=== PATIENT | female | born 1955 | race Caucasian/White ===

== ENCOUNTER → 2017-11-03 | Outpatient (CLI) | payer BC, OTHER ==
[~2017-11-03] VITALS: Ht 149.9 cm; Wt 78.0 kg
[~2017-11-03] MED LIST: ASPIR 8181 MG PO; FELDENE20 MG PO; LOSARTAN-HCTZ1 EAC1 PO; METFORMIN HCL500 MG PO; RESTASIS1 EACH OPHTHALMIC; SIMVASTATIN40 MG PO; SYNTHROID88 MCG PO; TOPROL XL100 MG PO; VENTOLIN HFA 1818 GM INH
--- NOTE | ~2017-11-03 | CATHLAB ---
[facility] [address] [place] [address] INVASIVE PROCEDURE REPORT Name: DARIUS PITT Room #: REG Talita#: [id number] Admission: 11/03/17 Attend Phys: Ren Matthews Discharge: Date of : 55 Date of Service: 11/22/17 1419 Report #: [id number] THIS REPORT FOR: //name// APPROVED REPORT Patient Details Patient Status: Out-Patient Room #: The patient is a 61 year-old female Event Personnel Ren Frost Scrub Tech, Gregor Coyne RN, Denisse Recinos Sandifer, David Monitor Procedures Performed Left Heart Cath w/or w/o Coronaries [id number] [facility] Indication Positive stress test, Chest pain Procedure Narrative The Right Groin^ was infiltrated with 1% Lidocaine subcutaneous anesthesia. A PINNACLE 4FR Sheath #[id number] sheath was inserted into the RFA^. Coronary angiography was performed using coronary diagnostic catheters. The right coronary system was accessed and visualized with a JR4 catheter. The left coronary system was accessed and visualized with a JL4 catheter. The left ventricle was accessed and visualized with a PIGTAIL catheter. Left ventricular/Aortic Valve gradient assessed via catheter pullback. Hemostasis was obtained with manual pressure following sheath removal without any complications. The patient tolerated the procedure well and there were no complications associated with the procedure. There was no hematoma. Intraoperative Conscious Sedation Sedation start time: 11.22 Case end Time: 11.36 Versed 2.0 mg Fluoro Time: 2.41 minutes Dose: 327 mGy Contrast Type and Amount: Omnipaque 50 ml Coronary Angiography The patient's coronary anatomy is right dominant. [facility] [address] [place] [address] INVASIVE PROCEDURE REPORT Name: SWEETIEELIZABETHPatric BENJAMIN Room #: REG CL EnriqueEnrique#: [id number] Admission: 11/03/17 Attend Phys: Ren Matthews Discharge: Date of : 55 Date of Service: 11/22/17 1419 Report #: [id number] Diagnostic Cath Left Main Normal origin and caliber bifurcates into left anterior descending left circumflex free of high-grade disease. Short in length. LAD Moderate caliber type II vessel which courses in the anterior interventricular sulcus giving rise to diagonal septal branches free of high-grade disease. Diagonal 1 Small-caliber nonobstructive vessel Circumflex Moderate caliber vessel terminating as a small posterior wall branch with a single large lateral wall marginal vessel noted which is free of high-grade disease OM1 Moderate caliber lateral wall vessel without obstructive lesions or luminal luminary irregularities Right Coronary Small to moderate caliber vessel of normal origin. Courses posteriorly in the AV groove uterus is small marginal branches. Give us a small but long posterior descending artery which is free of high-grade disease. The posterior circulation consists of a posterolateral branch which is free of high-grade disease R PDA Small-caliber vessel without obstructive lesions noted Left Ventriculography Left Ventriculography was not performed. Hemodynamics The aortic pressure is 152/68 mmHg with a mean of 87 mmHg. The left ventricular pressure is 157/10 mmHg with a mean of mmHg. The left ventricular end diastolic pressure is 19 mmHg. Conclusion 1. Normal coronary arteries 2. Normal hemodynamics Recommendations Cardiac Risk Reduction Program <ELECTRONICALLY SIGNED> By: Ren Frost MD 11/22/17 1419 1419 1419 Ren Frost MD /INF
[2017-11-03 08:23] VITALS: BP 145/69
== END | disposition home or self-care (01) ==
LOC: CATH 07:55
DX: R07.9 Chest pain, unspecified (principal); I10 Essential (primary) hypertension; E11.9 Type 2 diabetes mellitus without complications; J45.909 Unspecified asthma, uncomplicated; M19.90 Unspecified osteoarthritis, unspecified site; E78.5 Hyperlipidemia, unspecified; E03.9 Hypothyroidism, unspecified; Z90.710 Acquired absence of both cervix and uterus; Z98.890 Other specified postprocedural states